=== PATIENT | female | born 1990 | race Caucasian/White ===

== ENCOUNTER 2016-11-07 08:45 | Inpatient (IN) | payer MEDICAID ==
[~2016-11-07] VITALS: Ht 162.6 cm; Wt 103.6 kg
[~2016-11-07 08:45] MED LIST: DOCU-30 PO; HYDR-3240 PO; IBUP800T PO; NITR100C56 PO; PREN1TAB60 PO
[2016-11-07] MEDS ORDERED: LACTATED RINGERS 1,000 ML IV SCH ×2 (12:00→12:50)
[2016-11-07] MEDS ORDERED: OXYTOCIN 30U/ 0.9% NaCL 500ML 500 ML IV SCH (12:50)
[2016-11-07 12:52] VITALS: BP 126/77
[2016-11-07] MEDS ORDERED: METOCLOPRAMIDE 5 MG/ML, 2ML IV ONE (13:00)
[2016-11-07] MEDS ORDERED: SODIUM CITRATE/CITRIC ACID 30 ML UDC PO ONE (13:00)
[2016-11-07] MEDS ORDERED: LACTATED RINGERS 1,000 ML IVBOLUS ONE (13:00)
[2016-11-07] MEDS ORDERED: NEWBORN KIT ONE (15:04)
[2016-11-07] MEDS ORDERED: OXYTOCIN 30U/ 0.9% NaCL 500ML 500 ML ONE (15:04)
[2016-11-07] MEDS ORDERED: SODIUM CITRATE/CITRIC ACID 30 ML UDC ONE (15:27)
[2016-11-07] MEDS ORDERED: METOCLOPRAMIDE 5 MG/ML, 2ML ONE ×2 (15:28→16:29)
[2016-11-07] MEDS ORDERED: EPHEDRINE 50 MG/ML, 1ML ONE (16:29)
[2016-11-07] MEDS ORDERED: CEFAZOLIN 1,000 MG ONE (16:29)
[2016-11-07] MEDS ORDERED: KETOROLAC 30 MG/1 ML ONE (16:29)
[2016-11-07] MEDS: LACTATED RINGERS 1,000 ML IV SCH ×2 (16:55)
[2016-11-07] MEDS: OXYTOCIN 30U/ 0.9% NaCL 500ML 500 ML IV SCH (16:55)
[2016-11-07] MEDS: KETOROLAC 30 MG/1 ML IV SCH (17:00)
[2016-11-07] MEDS ORDERED: METOCLOPRAMIDE 5 MG/ML, 2ML IV PRN (17:00)
[2016-11-07] MEDS ORDERED: ACETAMINOPHEN 325 MG TABLET PO PRN (17:00)
[2016-11-07] MEDS ORDERED: ONDANSETRON 2MG/ML, 2ML IV PRN (17:00)
[2016-11-07] MEDS ORDERED: CALCIUM CARBONATE 500 MG TAB.CHEW PO PRN (17:00)
[2016-11-07] MEDS ORDERED: OXYcodone 5 MG/5 ML ORAL.SOL UDC ONE (18:25)
[2016-11-07] MEDS ORDERED: OXYcodone 5 MG/5 ML ORAL.SOL UDC PO PRN (18:30)
[2016-11-07] MEDS ORDERED: OXYcodone 5 MG/5 ML ORAL.SOL UDC PO ONE (18:45)
[2016-11-07] MEDS ORDERED: morphine SULFATE 10 MG/ML, 1ML ONE (19:52)
[2016-11-07] MEDS: morphine SULFATE 10 MG/ML, 1ML IVPush PRN ×2 (19:53→21:17)
[2016-11-07 20:25] VITALS: BP 120/75
[2016-11-08] MEDS: KETOROLAC 30 MG/1 ML IV SCH ×4 (00:24→18:34)
[2016-11-08 00:40] VITALS: BP 114/71
[2016-11-08] MEDS: SIMETHICONE 80 MG CHEW TAB PO PRN ×2 (00:45→22:49)
[2016-11-08] MEDS: OXYcodone/APAP 5/325MG TABLET PO PRN ×6 (00:46→22:50)
[2016-11-08] MEDS: LACTATED RINGERS 1,000 ML IV SCH ×4 (00:55→12:55)
[2016-11-08] MEDS: morphine SULFATE 10 MG/ML, 1ML IVPush PRN (02:26)
[2016-11-08] MEDS: OXYTOCIN 30U/ 0.9% NaCL 500ML 500 ML IV SCH ×2 (02:55→12:55)
[2016-11-08 05:00] VITALS: BP 106/66
[2016-11-08 07:50] VITALS: BP 105/57
[2016-11-08] MEDS: PRENATAL VIT/IRON/FA 1 EACH TABLET PO SCH (08:55)
[2016-11-08] MEDS: DOCUSATE 100 MG CAPSULE PO PRN ×2 (08:55→22:49)
[2016-11-08 12:35] VITALS: BP 104/61
[2016-11-08 16:30] VITALS: BP 110/82
[2016-11-08 19:00] VITALS: BP 106/67
[2016-11-09] MEDS: KETOROLAC 30 MG/1 ML IV SCH ×3 (00:48→13:05)
[2016-11-09] MEDS: OXYcodone/APAP 10/325MG TABLET PO PRN ×5 (03:43→22:24)
[2016-11-09 07:35] VITALS: BP 101/63
[2016-11-09] MEDS: DOCUSATE 100 MG CAPSULE PO PRN (07:38)
[2016-11-09] MEDS: PRENATAL VIT/IRON/FA 1 EACH TABLET PO SCH (07:38)
[2016-11-09] MEDS: FERROUS SULFATE 325 MG TABLET PO SCH (16:39)
[2016-11-09] MEDS: IBUPROFEN 600 MG TABLET PO PRN ×2 (17:30→23:57)
[2016-11-09 19:30] VITALS: BP 101/67
[2016-11-10 01:00] VITALS: BP 100/62
[2016-11-10] MEDS: OXYcodone/APAP 10/325MG TABLET PO PRN ×2 (02:19→06:25)
[2016-11-10] MEDS: IBUPROFEN 600 MG TABLET PO PRN ×3 (06:25→20:08)
[2016-11-10] MEDS: PRENATAL VIT/IRON/FA 1 EACH TABLET PO SCH (09:00)
[2016-11-10 10:00] VITALS: BP 126/61
[2016-11-10] MEDS: OXYcodone/APAP 5/325MG TABLET PO PRN ×3 (11:13→20:07)
[2016-11-10] MEDS: FERROUS SULFATE 325 MG TABLET PO SCH (17:00)
[2016-11-10 20:00] VITALS: BP 102/67
[2016-11-10] MEDS: DOCUSATE 100 MG CAPSULE PO PRN (20:07)
[2016-11-11] MEDS: OXYcodone/APAP 5/325MG TABLET PO PRN ×3 (00:15→08:00)
[2016-11-11] MEDS: IBUPROFEN 600 MG TABLET PO PRN ×2 (03:24→09:36)
[2016-11-11 07:30] VITALS: BP 101/63
[2016-11-11] MEDS ORDERED: POLYETHYLENE GLYCOL 17 GM PACKET PO ONE (07:30)
[2016-11-11] MEDS: DOCUSATE 100 MG CAPSULE PO PRN (08:00)
[2016-11-11] MEDS: PRENATAL VIT/IRON/FA 1 EACH TABLET PO SCH (08:00)
[2016-11-11] MEDS: FERROUS SULFATE 325 MG TABLET PO SCH (08:01)
[2016-11-11] MEDS ORDERED: IBUP-1222 PO (11:05)
[2016-11-11] MEDS ORDERED: OXYC-302 PO (11:08)
[2016-11-11] MEDS ORDERED: DOCU-30 PO (11:09)
== END 2016-11-11 13:27 | disposition home or self-care (01) | DRG 765 ==
LOC: LDIP 12:10 → 2NW 20:10
PROVIDERS: ADMIT Obstetrics & Gynecology; ATTEND Obstetrics & Gynecology
PROC: 10D00Z1 Extraction of Products of Conception, Low, Open Approach (ICD-10-PCS; principal; 2016-11-07)
DX: O32.1XX1 Maternal care for breech presentation, fetus 1 (principal); O30.043 Twin pregnancy, dichorionic/diamniotic, third trimester; Z37.2 Twins, both liveborn; F32.9 Major depressive disorder, single episode, unspecified; O99.344 Other mental disorders complicating childbirth; Z3A.38 38 weeks gestation of pregnancy; O90.81 Anemia of the puerperium; D50.9 Iron deficiency anemia, unspecified
CPT/HCPCS: 36415; 85025; 86850; 86900; 88307; J0690; J1885; J2270; J2765; J7120

== ENCOUNTER 2016-12-15 10:49 | Emergency (ER) | payer MEDICAID ==
[~2016-12-15] VITALS: Ht 167.6 cm; Wt 95.2 kg
[~2016-12-15 10:49] MED LIST changes: +IBUP-1222 PO; +OXYC-302 PO
[2016-12-15 10:51] VITALS: BP 118/75
== END 2016-12-15 11:52 | disposition home or self-care (01) ==
LOC: ED 11:35
DX: Z48.01 Encounter for change or removal of surgical wound dressing (principal)
CPT/HCPCS: 99281